=== PATIENT | female | born 1965 | race African-American/Black ===

== ENCOUNTER 2016-11-27 12:48 | Inpatient (IN) | payer MEDICAID ==
[~2016-11-27] VITALS: Ht 152.4 cm; Wt 108.4 kg
[2016-11-27] MEDS ORDERED: MORPHINE SULFATE 4 MG/ML CPJ (NOT FOR IM USE) IV STA (14:06)
[2016-11-27] MEDS ORDERED: NITROGLYCERIN OINT 1GM/INCH UDPKT TD STA (14:06)
[2016-11-27] MEDS ORDERED: ASPIRIN 325MG EC TABLET PO ONE (14:15)
[2016-11-27 14:23] LABS: BASOPHILS % 1.3 % (0.0-2.0); EOSINOPHILS % 2.8 % (0.0-5.0); HEMATOCRIT. 31.7 % (36.0-48.0); HEMOGLOBIN. 10.3 g/dL (12.0-16.0); MEAN CORPUSCULAR HEMOGLOBIN 25.5 pg (28.0-32.0); MEAN CORPUSCULAR VOLUME 78.8 fL (81.0-99.0); MEAN PLATELET VOLUME 8.9 fl (7.4-10.4); NEUTROPHILS % 48.9 % (40.0-76.0); PLATELET 184 x1000/uL (130-400); RED BLOOD CELL COUNT 4.03 mill/uL (4.2-5.4); RED CELL DISTRIBUTION WIDTH 16.4 % (11.6-14.6)
[2016-11-27 14:28] LABS: CHLORIDE 111 mEq/L (98-107)
[2016-11-27 14:39] LABS: CARBON DIOXIDE 26 mEq/L (21-32); TROPONIN I < 0.02 ng/mL (0.00-0.04)
[2016-11-27 23:31] LABS: *AMPHETAMINES SCREEN URINE NEGATIVE (NEGATIVE); *BARBITURATES SCREEN URINE NEGATIVE (NEGATIVE); *BENZODIAZEPINES SCREEN URINE NEGATIVE (NEGATIVE); *COCAINE SCREEN URINE PRESUMTIVE POSITIVE (NEGATIVE); CANNABINOID URINE SCREEN NEGATIVE (NEGATIVE); METHADONE URINE SCREEN NEGATIVE (NEGATIVE); OPIATES URINE SCREEN PRESUMTIVE POSITIVE (NEGATIVE); PHENCYCLIDINE URINE SCREEN NEGATIVE (NEGATIVE)
[2016-11-28] VITALS (9 sets, daily range): BP systolic 101–175; BP diastolic 61–109
[2016-11-28] MEDS ORDERED: QUET200T PO (02:05)
[2016-11-28] MEDS ORDERED: HYDR-3511 PO (02:05)
[2016-11-28] MEDS ORDERED: PARO10TA87 PO (02:05)
[2016-11-28] MEDS ORDERED: ALBU6.7H INH (02:05)
[2016-11-28 06:41] LABS: BASOPHILS % 0.6 % (0.0-2.0); EOSINOPHILS % 2.6 % (0.0-5.0); HEMATOCRIT. 31.7 % (36.0-48.0); HEMOGLOBIN. 10.3 g/dL (12.0-16.0); LYMPHOCYTES % 45.3 % (20.0-50.0); MEAN CORPUSCULAR HEMOGLOBIN 25.9 pg (28.0-32.0); MEAN CORPUSCULAR VOLUME 79.5 fL (81.0-99.0); MEAN PLATELET VOLUME 9.3 fl (7.4-10.4); MONOCYTES % 5.5 % (2.0-8.0); PLATELET 189 x1000/uL (130-400); RED BLOOD CELL COUNT 3.99 mill/uL (4.2-5.4); RED CELL DISTRIBUTION WIDTH 16.6 % (11.6-14.6)
[2016-11-28 07:07] LABS: CHLORIDE 110 mEq/L (98-107); CREATINE KINASE 79 IU/L (26-192); HDL CHOLESTEROL 50 mg/dL (40-59); LDL CHOLESTEROL 110 mg/dL (5-100)
[2016-11-28 07:18] LABS: CARBON DIOXIDE 25 mEq/L (21-32); TROPONIN I < 0.02 ng/mL (0.00-0.04)
[2016-11-28] MEDS ORDERED: HYDR25TA PO (13:01)
[2016-11-28] MEDS ORDERED: ALBUTEROL 6.7GM HFA INHALER INH SCH (13:15)
[2016-11-28] MEDS ORDERED: ALBUTEROL (0.083%) 2.5MG/3ML NEB HHN PRN (13:15)
[2016-11-28] MEDS: HYDROCHLOROTHIAZIDE 25MG TABLET PO SCH (13:36)
[2016-11-28] MEDS: DILTIAZEM HCL 30MG TABLET PO SCH ×2 (14:23→23:02)
[2016-11-28] MEDS: QUETIAPINE FUMARATE 100MG TABLET PO SCH (20:05)
[2016-11-28] MEDS: ATORVASTATIN CALCIUM 10MG TABLET PO SCH (20:05)
[2016-11-28] MEDS: PAROXETINE HCL 10MG TABLET PO SCH (20:05)
[2016-11-28] MEDS ORDERED: MEDICATION NOT ON FORMULARY EA (Quetiapine Fumarate (Seroquel) 200 MG) PO SCH (21:00)
[2016-11-29] VITALS: BP 100/60
[2016-11-29 04:00] VITALS: BP 133/78
[2016-11-29] MEDS: DILTIAZEM HCL 30MG TABLET PO SCH (05:26)
[2016-11-29 07:40] LABS: BASOPHILS % 0.7 % (0.0-2.0); HEMATOCRIT. 34.5 % (36.0-48.0); HEMOGLOBIN. 11.1 g/dL (12.0-16.0); LYMPHOCYTES % 47.3 % (20.0-50.0); MEAN CORPUSCULAR HEMOGLOBIN 25.3 pg (28.0-32.0); MEAN CORPUSCULAR VOLUME 78.8 fL (81.0-99.0); MEAN PLATELET VOLUME 9.4 fl (7.4-10.4); MONOCYTES % 5.5 % (2.0-8.0); NEUTROPHILS % 43.5 % (40.0-76.0); PLATELET 200 x1000/uL (130-400); RED BLOOD CELL COUNT 4.37 mill/uL (4.2-5.4); RED CELL DISTRIBUTION WIDTH 16.3 % (11.6-14.6)
[2016-11-29 08:00] VITALS: BP 160/75
[2016-11-29] MEDS: HYDROCHLOROTHIAZIDE 25MG TABLET PO SCH ×2 (08:32→14:17)
[2016-11-29 08:49] LABS: CARBON DIOXIDE 30 mEq/L (21-32); CHLORIDE 105 mEq/L (98-107)
[2016-11-29 12:00] VITALS: BP 142/89
[2016-11-29] MEDS: DILTIAZEM HCL 60MG TABLET PO SCH ×2 (14:18→21:27)
[2016-11-29 16:00] VITALS: BP 150/75
[2016-11-29 20:00] VITALS: BP 145/74
[2016-11-29] MEDS: ATORVASTATIN CALCIUM 10MG TABLET PO SCH (20:07)
[2016-11-29] MEDS: PAROXETINE HCL 10MG TABLET PO SCH (20:07)
[2016-11-29] MEDS: QUETIAPINE FUMARATE 100MG TABLET PO SCH (20:07)
[2016-11-30] VITALS: BP 91/60
[2016-11-30 04:00] VITALS: BP 108/63
[2016-11-30] MEDS: DILTIAZEM HCL 60MG TABLET PO SCH ×2 (05:35→13:14)
[2016-11-30 06:42] LABS: BASOPHILS % 0.7 % (0.0-2.0); EOSINOPHILS % 2.8 % (0.0-5.0); HEMATOCRIT. 34.1 % (36.0-48.0); HEMOGLOBIN. 11.1 g/dL (12.0-16.0); LYMPHOCYTES % 48.8 % (20.0-50.0); MEAN CORPUSCULAR HEMOGLOBIN 25.8 pg (28.0-32.0); MEAN CORPUSCULAR VOLUME 79.5 fL (81.0-99.0); MONOCYTES % 6.6 % (2.0-8.0); NEUTROPHILS % 41.1 % (40.0-76.0); PLATELET 193 x1000/uL (130-400); RED CELL DISTRIBUTION WIDTH 16.3 % (11.6-14.6)
[2016-11-30 07:11] LABS: CARBON DIOXIDE 30 mEq/L (21-32); CHLORIDE 104 mEq/L (98-107)
[2016-11-30 08:00] VITALS: BP 126/64
[2016-11-30] MEDS: HYDROCHLOROTHIAZIDE 25MG TABLET PO SCH (08:50)
[2016-11-30 12:00] VITALS: BP 132/65
[2016-11-30 16:00] VITALS: BP 147/85
[2016-11-30 20:00] VITALS: BP 119/55
[2016-11-30] MEDS: ATORVASTATIN CALCIUM 20MG TABLET PO SCH (20:14)
[2016-11-30] MEDS: QUETIAPINE FUMARATE 100MG TABLET PO SCH (20:14)
[2016-11-30] MEDS: PAROXETINE HCL 10MG TABLET PO SCH (20:14)
[2016-12-01] VITALS: BP 123/62
[2016-12-01] MEDS: DILTIAZEM HCL 60MG TABLET PO SCH ×4 (00:33→20:43)
[2016-12-01 04:00] VITALS: BP 109/72
[2016-12-01 05:46] LABS: BASOPHILS % 0.7 % (0.0-2.0); EOSINOPHILS % 3.8 % (0.0-5.0); HEMATOCRIT. 33.8 % (36.0-48.0); HEMOGLOBIN. 10.9 g/dL (12.0-16.0); LYMPHOCYTES % 51.4 % (20.0-50.0); MEAN CORPUSCULAR HEMOGLOBIN 25.8 pg (28.0-32.0); MEAN CORPUSCULAR VOLUME 79.7 fL (81.0-99.0); MEAN PLATELET VOLUME 9.4 fl (7.4-10.4); MONOCYTES % 5.6 % (2.0-8.0); NEUTROPHILS % 38.5 % (40.0-76.0); PLATELET 198 x1000/uL (130-400); RED BLOOD CELL COUNT 4.24 mill/uL (4.2-5.4); RED CELL DISTRIBUTION WIDTH 16.5 % (11.6-14.6)
[2016-12-01 06:24] LABS: CARBON DIOXIDE 28 mEq/L (21-32); CHLORIDE 106 mEq/L (98-107)
[2016-12-01 08:00] VITALS: BP 147/69
[2016-12-01] MEDS: HYDROCHLOROTHIAZIDE 25MG TABLET PO SCH (08:50)
[2016-12-01 12:00] VITALS: BP 121/59
[2016-12-01 16:00] VITALS: BP 121/89
[2016-12-01 20:00] VITALS: BP 146/88
[2016-12-01] MEDS: QUETIAPINE FUMARATE 100MG TABLET PO SCH (20:43)
[2016-12-01] MEDS: ATORVASTATIN CALCIUM 20MG TABLET PO SCH (20:43)
[2016-12-01] MEDS: PAROXETINE HCL 10MG TABLET PO SCH (20:43)
[2016-12-02] VITALS: BP 123/62
[2016-12-02 04:00] VITALS: BP 143/71
[2016-12-02] MEDS: DILTIAZEM HCL 60MG TABLET PO SCH ×2 (05:46→13:19)
[2016-12-02 08:00] VITALS: BP 121/56
[2016-12-02] MEDS: HYDROCHLOROTHIAZIDE 25MG TABLET PO SCH (08:51)
[2016-12-02] MEDS ORDERED: LORAZEPAM 0.5MG TABLET PO NR (11:00)
[2016-12-02 12:00] VITALS: BP 130/55
[2016-12-02 15:52] VITALS: BP 158/68
[2016-12-02 16:00] VITALS: BP 158/68
== END 2016-12-02 17:00 | disposition home or self-care (01) | DRG 198 ==
LOC: ER 13:04 → 7WST 18:13 → EDBEDREQ 23:03 → ENRESERV 23:25
PROVIDERS: ADMIT Internal Medicine; ATTEND Internal Medicine
DX: I24.9 Acute ischemic heart disease, unspecified (principal); E11.22 Type 2 diabetes mellitus with diabetic chronic kidney disease; I50.9 Heart failure, unspecified; I13.0 Hypertensive heart and chronic kidney disease with heart failure and stage 1 through stage 4 chronic kidney disease, or unspecified chronic kidney disease; K92.2 Gastrointestinal hemorrhage, unspecified; Z68.42 Body mass index [BMI] 45.0-49.9, adult; F14.10 Cocaine abuse, uncomplicated; R19.00 Intra-abdominal and pelvic swelling, mass and lump, unspecified site; F17.210 Nicotine dependence, cigarettes, uncomplicated; N18.9 Chronic kidney disease, unspecified; J44.9 Chronic obstructive pulmonary disease, unspecified; Z59.0 Homelessness; Z88.0 Allergy status to penicillin; Z79.899 Other long term (current) drug therapy; F20.9 Schizophrenia, unspecified; E66.9 Obesity, unspecified
CPT/HCPCS: 36415; 71010; 80048; 80053; 80061; 80305; 82550; 82962; 83690; 83880; 84484; 85025; 93005; 93306; 93970; 96374; 99285; J2270